=== PATIENT | female | born 1995 | race Caucasian/White ===

== ENCOUNTER 2025-02-27 22:53 | Emergency (ER) | payer OTHER, SELFPAY ==
[2025-02-27 22:54] VITALS: BP 164/98
--- NOTE | 2025-02-28 01:56 | ED.GENMED ---
History of Present Illness
General
Chief Complaint: Throat Problem
Source: patient
Exam Limitations: none
Time Seen by Provider: 02/28/25 01:22
Nursing documentation reviewed up to this point in time: agreed with
History of Present Illness
History of Present Illness:
29-year-old female presenting to the emergency department concerns of sore throat over the past 3 days or so. Also has some nasal congestion some chills body aches difficulty sleeping secondary to pain. Has been able to swallow. Denies
significant fevers no chest pain or shortness of breath.
Review of Systems
Review of Systems
Allergies reviewed?: Yes
All Other Systems: ROS reviewed and negative except as documented in HPI and ROS
Phy Exam
Physical Exam
Physical Exam:
GENERAL: Alert , in no apparent distress
EYE: pupils equal and reactive
NECK: Supple, no significant adenopathy.
ENT: Minimal swelling to the tonsils uvula midline mild redness and irritation of the posterior pharynx with postnasal drip swollen boggy nasal turbinates no significant cervical lymphadenopathy, mild submandibular lymphadenopathy o/p clr, mmm.
CARDIAC: Regular rate and rhythm .
LUNGS: Clear breath sounds bilaterally, no acute respiratory distress, no wheezes/rales/rhonchi
ABDOMEN: Soft, without focal tenderness, no r/g, no cvat
NEUROLOGICAL: Alert and oriented, no focal neuro deficits
SKIN: Warm and dry, skin intact.
MUSCULOSKELETAL: No edema, well perfused.
PSYCH: Normal and appropriate interaction.
Course
Orders/Labs/Results
Orders:
Orders
02/27/25 22:59
Rapid Strep Group A Urgent
AMARIS Source: Throat/Pharynx
Specimen Description:
Date Specimen was Collected: 02/27/25
Time Specimen was Collected: 22:57
Vital Signs
Initial and Last Documented VS:
Initial Vital Signs
Temp Pulse Resp BP Pulse Ox
99.9 F 85 18 164/98 98
02/27/25 22:54 02/27/25 22:54 02/27/25 22:54 02/27/25 22:54 02/27/25 22:54
Last Documented Vital Signs
Temp Pulse Resp BP Pulse Ox
99.9 F 85 18 164/98 98
02/27/25 22:54 02/27/25 22:54 02/27/25 22:54 02/27/25 22:54 02/27/25 22:54
MDM/Problems Addressed
MDM/Problems Addressed:
29-year-old female presenting with concerns of sore throat. Here vital signs showing elevated blood pressure otherwise vital signs normal. Patient in no distress mild irritation of the posterior pharynx without significant exudate uvula midline
there was some postnasal drip. Symptoms most consistent with a viral pharyngitis no signs of complications. Plan for symptomatic treatment and otherwise outpatient follow-up. Return precautions given.
*Pulse Oximetry
SaO2: 98
Oxygen Mode of Delivery: Room air
Patient hypoxic: no (98)
*Critical Care Note
Total Time (30-74mins, 75-104mins- exclusive of procedures): Not Applicable
ED Attending Note
-
Portions of this chart may have been created with voice recognition software.� Occasional wrong word or��sound alike� substitutions may have occurred due to the inherent limitations of voice recognition software.
Discharge Plan
Departure
Patient Disposition: Home (Routine Discharge)
Date of Disposition: 02/28/25
Time of Disposition: 01:59
Patient with high blood pressure during this ER visit?: No
Condition: Good
Covid-19: Not Applicable
Discharge Problem:
Pharyngitis
Instructions: Sore Throat, Adult (DC)
Prescriptions:
New
dexamethasone 4 mg tablet
10 mg PO ONCE Qty: 3 0RF
fluticasone propionate [Flonase Allergy Relief] 50 mcg/actuation spray,suspension
1 spray intranasal BID Qty: 16 0RF
Referrals:
NONE,* [Family Provider, Internal Medicine]
Activity Restrictions/Additional Instructions:
You came to the emergency department today with concerns of sore throat. Here you had no signs of complications. You can take the prescribed medications with hopeful improvement of symptoms over the next few days. Return for any worsening, new or
concerning symptoms.
Interventions
Interventions:
*Risk Screen - Suicide Last Done: 02/27/25 22:54
*General Assessment Last Done: 02/27/25 22:54
*Neglect/Abuse Screening Last Done: 02/27/25 22:54
*ED- Fall Risk Assessment Last Done: 02/27/25 22:54
*ED COVID-19 Vaccine History Last Done: 02/27/25 22:54
ED-EENT Assessment Last Done: 02/28/25 01:12
ED- Pulmonary Assessment Last Done: 02/28/25 01:12
Discharge Date and Time
Print Language: HUNGARIAN
[2025-02-28 02:03] VITALS: BP 144/97
== END 2025-02-28 02:04 | disposition home or self-care (01) ==
LOC: EMR 22:53
PROVIDERS: EMERGENCY PHYSICIAN Emergency Medicine
DX: J02.9 Acute pharyngitis, unspecified (principal)
CPT/HCPCS: 99282; 87070; 87880